=== PATIENT | male | born 1990 | race Caucasian/White ===

== ENCOUNTER 2017-02-02 20:31 | Emergency (ER) | payer BC ==
[2017-02-02] MEDS: Lidocaine 2% 20ml Vial IP ONE (21:25)
[2017-02-02] MEDS: DIPH,PERTUSS(ACELL),TET VAC/PF 0.5 ML DISP.SYRIN IM ONE (21:50)
[2017-02-03 02:54] VITALS: BP 131/81
[2017-02-03] MEDS: NEOMYCIN SU/BACITRAC ZN/POLY 1 EACH OINT.PACK TP ONE (04:15)
--- NOTE | 2017-02-03 04:42 | ED Physician Documentation ---
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 Onset: minutes (30) Timing: still present Severity: moderate Modifying Factors: cut at work on clean box knife Context: as above Location: right knee Further Comments: no - ROS CONST: no problems EYES/ENT: none CVS/RESP: none GI/: none MS/SKIN/LYMPH: none NEURO/PSYCH: denies: headache, fainting, dizziness, tingling, numbness, difficulty walking, difficulty with speech, anxiety, depression - PAST HX Past History: none Other History: none Surgeries/Procedures: none Immunizations: tetanus Allergies/Adverse Reactions: Allergies Allergy/AdvReac Type Severity Reaction Status Date / Time No Known Allergies Allergy Verified 02/02/17 20:40 Home Medications: Ambulatory Orders Medication Instructions Recorded NK [NK] 11/29/13 - SOCIAL HX Smoking History: cigarettes Alcohol Use: none Drug Use: none - FAMILY HX Family History: Yes - VITAL SIGNS Vital Signs: Vital Signs Temp Pulse Resp BP Pulse Ox 98.4 F 88 16 131/81 98 02/02/17 20:31 02/03/17 02:52 02/03/17 02:52 02/03/17 02:52 02/03/17 02:52 - REVIEWED ASSESSMENTS Nursing Assessment Reviewed: Yes Vitals Reviewed: Yes Procedures Wound Location: lower extremity (right knee) Wound Length: 3 cm Wound's Depth, Shape: into muscle, linear Wound Explored: no foreign body removed Betadine Prep?: No Anesthesia: 2% Lidocaine Volume of Anesthetic: 8 cc Wound Debrided: none Wound Repaired With: sutures Suture Size/Type: 3:0, nylon Number of Sutures: 5 Layer Closure?: No Progress - Results/Orders Results/Orders: none ordered - Progress Progress: pt stable entire time in er Critical Care Note - Critical Care Note Total Time (mins): 0 ED Results Lab/Radiology - Lab Results Lab Results: none ordered - Radiology Radiology Impressions: none ordered - Orders Orders: ED Orders Category Date Time Status Further Nursing Orders 1T Care 02/03/17 21:50 Ordered Diph,Pertuss(Acell),Tet Vac/Pf [Adacel] Med 02/02/17 21:50 Discontinued 0.5 ml IM .ONCE ONE Lidocaine 2% 20ml Vial [Xylocaine] Med 02/02/17 21:21 Discontinued 20 mg IP NOW ONE Neomycin Serrano/Bacitrac Zn/Poly [Triple Antibiotic Med 02/03/17 04:14 Once Ointment] 1 each TP NOW ONE General Adult Physical Exam - PHYSICAL EXAM GENERAL APPEARANCE: moderate distress EENT: eye inspection normal, ENT inspection normal, pharynx normal, no signs of dehydration, BAO, no nystagmus, TM's nml NECK: normal inspection, thyroid normal, supple RESPIRATORY: no resp distress, chest non-tender, breath sounds normal CVS: reg rate & rhythm, heart sounds normal, equal pulses, no murmur, no gallop , PMI nml ABDOMEN: soft, no organomegaly, normal bowel sounds, no abdominal bruit, no distension, non-tender BACK: normal inspection, no CVA tenderness SKIN: other (laceration right knee) EXTREMITIES: non-tender, normal range of motion, other (3 cm laceration) NEURO: oriented X3, CN's nml as tested, motor nml, sensation nml, mood/affect nml, cognition normal Discharge Clincal Impression: Laceration Referrals: Primary Doctor,No [Primary Care Provider] - 2 Days Home Medications: Ambulatory Orders NK [NK] 11/29/13 Comments: pt. discharged with suture care instructions Condition: Stable Disposition: 01 HOME, SELF-CARE Decision to Admit: NO Decision Time: 02:45
== END 2017-02-02 22:09 | disposition home or self-care (01) ==
LOC: ED 20:31
DX: S81.011A Laceration without foreign body, right knee, initial encounter (principal); X58.XXXA Exposure to other specified factors, initial encounter; Y93.9 Activity, unspecified; Y99.9 Unspecified external cause status
CPT/HCPCS: 12002; 90471; 90715; 99283

== ENCOUNTER 2019-02-07 18:09 | Emergency (ER) | payer OTHER ==
--- NOTE | 2019-02-07 18:16 | ED Physician Documentation ---
General Adult - HISTORIAN Historian: patient - HPI Stated Complaint: laceration Chief Complaint: Laceration/Recheck/Suture Onset: hours (2) Timing: still present Severity: mild Further Comments: yes (He states he was using bailing wire and he had a piece cut and go in and out of his right hand middle finger. He had no other injury. He did clean the wound and then placed a dressing. He is UTD on tetanus and has no other complaints.) Last known Well Code/Unknown Code: Unknown - ROS CONST: no problems - PAST HX Past History: none Immunizations: UTD Allergies/Adverse Reactions: Allergies Allergy/AdvReac Type Severity Reaction Status Date / Time No Known Allergies Allergy Verified 02/07/19 18:27 Home Medications: Ambulatory Orders Medication Instructions Recorded NK 11/29/13 - SOCIAL HX Smoking History: non-smoker Alcohol Use: none Drug Use: none - FAMILY HX Family History: No - VITAL SIGNS Vital Signs: Vital Signs Temp Pulse Resp BP Pulse Ox 131/81 02/03/17 02:52 - REVIEWED ASSESSMENTS Nursing Assessment Reviewed: Yes Vitals Reviewed: Yes Progress - Progress Progress: 1900: discussed results and plan. He is agreeable DG ED Results Lab/Radiology - Radiology Radiology Impressions: EXAMINATION: HAND 3 VIEWS OR MORE HISTORY: HAND INJURY (Hx) / Note time : 02/07/2019 6:42:15 PM User : Ann Marie Suazo HAND INJURY - RT HAND (DICOM Hx) (DICOM Hx) COMPARISON: None FINDINGS: No acute fracture or dislocation is identified. There is a chronic appearing fracture of the 4th digit distal tuft. The joint spaces are preserved. Bone density is normal. No soft tissue swelling is seen. IMPRESSION: No acute fracture or dislocation identified. Chronic appearing fracture of the 4th digit distal tuft. Electronically signed on Feb 07, 2019 6:55:00 PM CDT by: Gamal Whitehead - Orders Orders: ED Orders Category Date Time Status Cleanse with NS and Chlorhexid 1T Care 02/07/19 18:20 Ordered HAND XRAY [HAND 3 VIEWS OR MORE] [RAD] Stat Exams 02/07/19 Ordered General Adult Physical Exam - PHYSICAL EXAM GENERAL APPEARANCE: no distress EENT: eye inspection normal NECK: normal inspection RESPIRATORY: no resp distress, chest non-tender, breath sounds normal CVS: reg rate & rhythm, heart sounds normal ABDOMEN: soft BACK: normal inspection SKIN: warm/dry, normal color, other (open area on right hand middle finger. puncture wound. No bleeding. Pulses + sensation + FROM + ) EXTREMITIES: non-tender, normal range of motion, no evidence of injury NEURO: oriented X3 Discharge Clincal Impression: Laceration Referrals: Primary Doctor,No [REFERRING] - 2 Days Comments: 1. Keep area clean and dry 2. Bandage for 24 hours 3. Watch for symptoms of infection as we discussed 4. Follow up with PCP for any increasing concerns 5. Return to ER for any increasing concerns Condition: Stable Disposition: 01 HOME, SELF-CARE Decision to Admit: NO Date of Decison to Admit: 02/07/19 Decision Time: 19:09
--- NOTE | 2019-02-07 19:06 | Diagnostic Imaging Report ---
LINDA PRESTON [facility] [address] [id number] Report Submission Date: Feb 07, 2019 6:55:00 PM CDT Patient Study Name: MARKY MEYER Date: Feb 07, 2019 6:17:11 PM CDT Modality Type: DX Gender: M Description: HAND 3 VIEWS OR MORE : 89 Institution: [facility] Physician: LINDA PRESTON EXAMINATION: HAND 3 VIEWS OR MORE HISTORY: HAND INJURY (Hx) / Note time : 02/07/2019 6:42:15 PM User : Ann Marie Suazo HAND INJURY - RT HAND (DICOM Hx) (DICOM Hx) COMPARISON: None FINDINGS: No acute fracture or dislocation is identified. There is a chronic appearing fracture of the 4th digit distal tuft. The joint spaces are preserved. Bone density is normal. No soft tissue swelling is seen. IMPRESSION: No acute fracture or dislocation identified. Chronic appearing fracture of the 4th digit distal tuft. Electronically signed on Feb 07, 2019 6:55:00 PM CDT by: Gamal BOURGEOIS
[2019-02-07 19:09] VITALS: BP 134/76
== END 2019-02-07 19:12 | disposition home or self-care (01) ==
LOC: ED 18:09
DX: S61.212A Laceration without foreign body of right middle finger without damage to nail, initial encounter (principal); W26.8XXA Contact with other sharp object(s), not elsewhere classified, initial encounter; Y99.8 Other external cause status
CPT/HCPCS: 73130; 99281; 99282